=== PATIENT | male | born 1975 | race Hispanic/Latino ===

== ENCOUNTER 2020-08-24 19:01 | Emergency (ER) | payer SELFPAY ==
[2020-08-24] MEDS ORDERED: NA CHLORIDE 0.9% 1,000 ML IV ONE (19:02)
[2020-08-24] MEDS ORDERED: EPINEPHrine 1 MG/10 ML SYR IV ONE (19:02)
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
[2020-08-24 21:40] VITALS: TEMP 98.7; O2SAT 0
== END 2020-08-24 21:37 | disposition expired ==
LOC: EDBD 19:01 → ER 19:01
PROC: 0BH17EZ Insertion of Endotracheal Airway into Trachea, Via Natural or Artificial Opening (ICD-10-PCS; principal; 2020-08-24)
PROC: 5A1935Z Respiratory Ventilation, Less than 24 Consecutive Hours (ICD-10-PCS; 2020-08-24)
DX: I46.9 Cardiac arrest, cause unspecified (principal); W69.XXXA Accidental drowning and submersion while in natural water, initial encounter; Y93.11 Activity, swimming; Y92.828 Other wilderness area as the place of occurrence of the external cause
CPT/HCPCS: 31500; 92950; 92960; 99285; J0171; J7030